=== PATIENT | male | born 1970 | race African-American/Black ===

== ENCOUNTER 2021-11-10 15:21 | Emergency (ER) | payer MEDICAID ==
[~2021-11-10] VITALS: Ht 182.9 cm; Wt 84.8 kg
[2021-11-10 15:29] VITALS: BP 160/104
--- NOTE | 2021-11-10 15:29 | NUR ---
BIBA to bed 11
--- NOTE | 2021-11-10 15:40 | NUR ---
51 y/o M BIBA from [facility] c/o abdominal pain and N/V >5 episodes for past two days. Pt states 10/10 abd pain, sharp/constant, non-radiating. Tenderness to palpation. Pt M-W-F dialysis; right upper chest dialysis port; completed 1nr10rbh of 3.5 hr tx. Patient normally on home O2 4L, presents on 6L via N/C per dialysis protocol. Patient denies diarrhea, constipation, fever, chills, chest pain, dysuria, urinary symptoms. ekg monitor tech in place BP 160/104. 4L via N/C remains in place SpO2 99%. Bed locked in lowest position, side rails x 2 for pt safety. PMH: ESRD/dialysis, DM I, HTN, anemia, CRF Meds: albuterol, clonidine, ferrous sulfate, folic acid, gabapentin, hydralazine, labetalol, lansoprazole, lantus, lasix, lisinopril, norvasc, novolog NKDA
--- NOTE | 2021-11-10 15:45 | NUR ---
Dr. Holder is evaluating pt at bedside
[2021-11-10] MEDS ORDERED: MORPHINE SULFATE 5 MG/ML VIAL IM ONE (16:00)
[2021-11-10] MEDS ORDERED: MORPHINE SULFATE 4 MG/ML SYR ONE (16:05)
--- NOTE | 2021-11-10 16:06 | NUR ---
Zofran 4mg ODT verbal order received from Dr. Holder.
--- NOTE | 2021-11-10 16:10 | NUR ---
ALEIDA chapman handed to CPT Maris at ER bedside
--- NOTE | 2021-11-10 16:11 | NUR ---
Patient d/c'd from director merit system and transported to CT via gurney.
[2021-11-10] MEDS: ONDANSETRON 4 MG ODT PO ONE (16:12)
[2021-11-10] MEDS: MORPHINE SULFATE 4 MG/ML SYR IM ONE ×2 (16:12→18:05)
--- NOTE | 2021-11-10 16:28 | NUR ---
Patient returned from CT and placed back onto curriculum and assessment director.
--- NOTE | 2021-11-10 16:56 | NUR ---
Lab at bedside
[2021-11-10 17:18] LABS: BASOPHILS % (AUTO) 0.3 % (0.0-2.0); EOSINOPHILS % (AUTO) 0.2 % (0.0-4.0); HEMATOCRIT 39.8 % (36-52); HEMOGLOBIN 12.6 g/dL (12.0-18.0); LYMPHOCYTES # (AUTO) 1.2 K/uL (2.0-11.5); LYMPHOCYTES % (AUTO) 8.1 % (20.5-51.1); MEAN CORPUSCULAR HEMOGLOBIN 28 pg (27-31); MEAN CORPUSCULAR HGB CONC 32 g/dL (33-37); MEAN CORPUSCULAR VOLUME 87.1 fL (80-94); MONOCYTES # (AUTO) 1.2 K/uL (0.8-1.0); MONOCYTES % (AUTO) 8.4 % (1.7-9.3); NEUTROPHILS # (AUTO) 12.2 K/uL (1.8-7.7); PLATELET COUNT (AUTO) 302 K/uL (140-450); RED BLOOD CELL COUNT(AUTO) 4.57 MIL/uL (4.20-6.10); WHITE BLOOD COUNT (AUTO) 14.7 K/uL (4.8-10.8)
[2021-11-10 17:38] LABS: ALBUMIN 4.1 g/dL (3.4-5.0); ANION GAP 17.6 (8-16); ASPARTATE AMINOTRANSFERASE 17 U/L (15-37); CARBON DIOXIDE 25.2 mmol/L (21-32); CHLORIDE 97 mmol/L (98-107); GFR ARICAN-AMERICAN 18 mL/min (>90); GLUCOSE 178 mg/dL (74-106); POTASSIUM 3.8 mmol/L (3.5-5.1); SODIUM SERUM 136 mmol/L (136-145); TOTAL BILIRUBIN 1.2 mg/dL (0.0-1.0); UREA NITROGEN, BLOOD 27 mg/dL (7-18)
[2021-11-10 17:51] LABS: CREATININE 4.4 mg/dL (0.6-1.3)
--- NOTE | 2021-11-10 17:53 | NUR ---
Patient states pain increasing to 8/[address] Holder made aware and verbal order received for Morphine 4mg IM.
[2021-11-10] MEDS ORDERED: CEFP200T20 PO (18:18)
[2021-11-10] MEDS ORDERED: METR-435 PO (18:18)
[2021-11-10] MEDS ORDERED: PEG4000P3 PO (18:19)
--- NOTE | 2021-11-10 18:42 | NUR ---
Dr. Holder is evaluating patient at bedside
[2021-11-10] MEDS: NACL 0.9% 500 ML IV ONE (19:13)
--- NOTE | 2021-11-10 19:15 | NUR ---
Report and transfer of care given to MARTIN Johnson
--- NOTE | 2021-11-10 21:07 | NUR ---
SPOKE WITH KAEL FROM PT[facility]S [facility] CONCERNING PT TRANSPORT.
[2021-11-10] MEDS: HYDROcodone/APAP 5/325 MG 1 TAB TAB PO ONE (22:45)
--- NOTE | 2021-11-11 07:18 | NUR ---
Pt report given to MARTIN ZENDEJAS. Transfer of care at this time.
--- NOTE | 2021-11-11 07:20 | NUR ---
RECEIVED REPORT FROM MARTIN TURNER. TRANSFER OF CARE AT THIS TIME.
--- NOTE | 2021-11-11 07:45 | NUR ---
PT RESTING IN BED, ON MAIL TELLER, NO COMPLAINTS AT THIS TIME.
--- NOTE | 2021-11-11 09:30 | NUR ---
PT C/O ABD PAIN 10/10 AND VOMITING ERMD AWARE. 4MG ZOFRAN ODT VERBAT ORDER, GIVEN.
[2021-11-11] MEDS: ONDANSETRON 4 MG ODT PO ONE ×2 (09:39→12:41)
--- NOTE | 2021-11-11 10:09 | NUR ---
GLOD MADE AWARE OF NEW VITALS, 01/24 ABD PAIN.
--- NOTE | 2021-11-11 10:13 | NUR ---
PT HAD ANOTHER EPISODE OF VOMITUS AT THIS TIME, ERMD MADE AWARE.
--- NOTE | 2021-11-11 10:32 | NUR ---
Zana hughes in ED - 11/11/21 at 1034 by [email or web address] PT MOTHER STATES SHE WANTS ANOTHER BREATHING TX, ERMD MADE AWARE. RT CALLED TO PT BEDSIDE.
[2021-11-11] MEDS ORDERED: HYDROcodone/APAP 7.5/325 MG 1 TAB ONE (10:38)
[2021-11-11] MEDS: HYDROcodone/APAP 7.5/325 MG 1 TAB PO ONE (10:39)
[2021-11-11] MEDS: amLODIPine 5 MG TAB PO ONE (10:57)
--- NOTE | 2021-11-11 11:43 | NUR ---
PT RESTING IN BED SUPINE, CALM AND COOPERATIVE, VSS, WILL CONTINUE TO MONITOR.
--- NOTE | 2021-11-11 12:30 | NUR ---
PT STATES +N/V, BP 222/113. ER MADE AWARE. ORDERS PENDING.
[2021-11-11] MEDS: atenoloL 25 MG TAB PO ONE (12:39)
[2021-11-11] MEDS: lisinopriL 20 MG TAB PO ONE (12:40)
--- NOTE | 2021-11-11 13:42 | NUR ---
PT C/O NAUSEA AND ABD PAIN 09/24. PER DR. MADRIGAL NO FURTHER MEDICATIONS TO BE ORDERED. ECONOMIC ADVISER TIME PER TEMPORARY RECEPTIONIST IS AT 1800. PT TO BE KEPT ON A BUILDING PRESSURE WASHER AND MONITORED.
--- NOTE | 2021-11-11 14:26 | NUR ---
PTS WOUND DRESSING BECAME UNDONE IN LEFT LEFT HEEL AND RIGHT FOOT, PRIOR DRESSING WAS REMOVED AND REPLACED WITH CLEAN STERILE DRESSING, +CMS AFTER PROCEDURE
--- NOTE | 2021-11-11 16:13 | NUR ---
PT SLEEPING, VISIBLE EQUAL RISE AND FALL OF CHEST, VSS, WILL CONTINUE TO MONITOR.
[2021-11-11 16:33] VITALS: BP 167/84
--- NOTE | 2021-11-11 16:33 | NUR ---
[facility] TRANSPORT TEAM AT BEDSIDE.
--- NOTE | 2021-11-11 16:34 | NUR ---
GAVE REPORT TO MARTIN SCRUGGS FOR PENDING TRANSPORT BACK TO [facility].
--- NOTE | 2021-11-11 16:35 | NUR ---
Patient discharged with v/s stable. Written and verbal after care instructions given and explained. Patient alert, oriented and verbalized understanding of instructions. [facility] VIA GURNEY. All questions addressed prior to discharge. ID band removed. Patient advised to follow up with PMD. Rx of CEFPODOXIME, FLAGYL, AND GOLYTELYSOLUTION given. Patient educated on indication of medication including possible reaction and side effects. Opportunity to ask questions provided and answered.
== END 2021-11-11 16:33 ==
LOC: MED 15:21
DX: K52.9 Noninfective gastroenteritis and colitis, unspecified (principal); Z20.822 Contact with and (suspected) exposure to COVID-19; R11.2 Nausea with vomiting, unspecified; E11.22 Type 2 diabetes mellitus with diabetic chronic kidney disease; I12.0 Hypertensive chronic kidney disease with stage 5 chronic kidney disease or end stage renal disease; N18.6 End stage renal disease; Z99.2 Dependence on renal dialysis; Z79.899 Other long term (current) drug therapy; Z98.890 Other specified postprocedural states
CPT/HCPCS: 36415; 71045; 74176; 80053; 82948; 84484; 85025; 87426; 96360; 96372; 99285; J2270; J7030; Q0092; Q0162

== ENCOUNTER 2022-08-08 16:07 | Inpatient (IN) | payer MEDICAID ==
[~2022-08-08] VITALS: Ht 177.8 cm; Wt 81.6 kg
[~2022-08-08 16:07] MED LIST: CEFP200T20 PO; METR-435 PO; PEG4000P3 PO
[2022-08-08] MEDS ORDERED: METOPROLOL 5 MG/5 ML VIAL IVP PRN (16:25)
[2022-08-08 16:28] VITALS: BP 99/69
[2022-08-08] MEDS ORDERED: AMIODARONE 150 MG in DEXTROSE 5% 100 ML IV ONE (16:40)
[2022-08-08] MEDS ORDERED: AMIODARONE 450 MG in DEXTROSE 5% 250 ML IV ONE (16:40)
[2022-08-08] MEDS ORDERED: AMIODARONE 150 MG/3 ML VIAL IV ONE (16:45)
--- NOTE | 2022-08-08 17:00 | NUR ---
PT BIB [facility] FROM DIALYSIS 3.5 HOUR INTO TREATMENT, NEW ONSET OF AFIB IN 150S. ON ARRIVAL GCS 15. DENIES PAIN OR DISCOMFORT.
[2022-08-08 17:28] LABS: BASOPHILS # (AUTO) 0.1 K/uL (0.00-0.22); BASOPHILS % (AUTO) 0.3 % (0.0-2.0); EOSINOPHILS % (AUTO) 0.1 % (0.0-4.0); HEMATOCRIT 35.1 % (36-52); HEMOGLOBIN 11.1 g/dL (12.0-18.0); LYMPHOCYTES % (AUTO) 11.6 % (20.5-51.1); MEAN CORPUSCULAR HEMOGLOBIN 27 pg (27-31); MEAN CORPUSCULAR HGB CONC 32 g/dL (33-37); MEAN CORPUSCULAR VOLUME 84.2 fL (80-94); MONOCYTES # (AUTO) 1.5 K/uL (0.8-1.0); MONOCYTES % (AUTO) 8.3 % (1.7-9.3); NEUTROPHILS % (AUTO) 79.7 % (42.2-75.2); PLATELET COUNT (AUTO) 354 K/uL (140-450); RED BLOOD CELL COUNT(AUTO) 4.17 MIL/uL (4.20-6.10); RED CELL DISTRIBUTION WIDTH 15.3 % (11.6-13.7); WHITE BLOOD COUNT (AUTO) 17.5 K/uL (4.8-10.8)
[2022-08-08 17:54] LABS: ALBUMIN 3.2 g/dL (3.4-5.0); ANION GAP 22.3 (8-16); ASPARTATE AMINOTRANSFERASE 22 U/L (15-37); CARBON DIOXIDE 25.3 mmol/L (21-32); CHLORIDE 93 mmol/L (98-107); GFR ARICAN-AMERICAN 15 mL/min (>90); GLUCOSE 112 mg/dL (74-106); MAGNESIUM 2.1 mg/dL (1.8-2.4); PHOSPHORUS 3.2 mg/dL (2.5-4.9); POTASSIUM 3.6 mmol/L (3.5-5.1); SODIUM SERUM 137 mmol/L (136-145); THYROID STIMULATING HORMONE 0.85 uIU/mL (0.34-3.74); TOTAL BILIRUBIN 0.6 mg/dL (0.0-1.0); UREA NITROGEN, BLOOD 23 mg/dL (7-18)
[2022-08-08 17:55] LABS: CREATININE 5.3 mg/dL (0.6-1.3)
[2022-08-08] MEDS ORDERED: VITA1TAB44 PO (18:02)
[2022-08-08] MEDS ORDERED: ATI.5 PO (18:02)
[2022-08-08] MEDS ORDERED: GABA300C PO (18:02)
[2022-08-08] MEDS ORDERED: SENN-72 PO (18:02)
[2022-08-08] MEDS ORDERED: CARV12.5 PO (18:02)
[2022-08-08] MEDS ORDERED: AMLO10TA PO (18:02)
[2022-08-08] MEDS ORDERED: ASCO-786 PO (18:02)
--- NOTE | 2022-08-08 18:31 | NUR ---
PT AFIB CONTROLLED INFUSING AMIODARONE TOLERATING WELL.
--- NOTE | 2022-08-08 19:25 | NUR ---
Patient resting in bed, A/Ox4, chest rise and fall symmetrical, no c/o pain or s/s of distress, on monitor.
--- NOTE | 2022-08-08 20:00 | NUR ---
PT MOTHER STACEY LEFT CONTACT INFO:
[2022-08-08] MEDS ORDERED: DILTIAZEM 125 MG in DEXTROSE 5% 100 ML IV SCH (20:15)
[2022-08-08] MEDS ORDERED: ONDANSETRON 4 MG/2 ML VIAL IM/IVP PRN (21:05)
[2022-08-08] MEDS ORDERED: DOCUSATE SODIUM 100 MG GELCAP PO PRN (21:05)
[2022-08-08] MEDS ORDERED: POTASSIUM CHLORIDE 10 MEQ TABER PO PRN (21:05)
[2022-08-08] MEDS ORDERED: guaiFENesin DM 200/20 MG-10 ML 10 ML UDC PO PRN (21:05)
[2022-08-08] MEDS ORDERED: ACETAMINOPHEN 325 MG TAB PO PRN (21:05)
[2022-08-08] MEDS ORDERED: ZOLPIDEM 5 MG TAB PO PRN (21:05)
[2022-08-08] MEDS ORDERED: PIPERACILLIN/TAZOBACTAM 3.375 GM in DEXTROSE 5% 50 ML IV SCH (21:10)
--- NOTE | 2022-08-08 21:17 | NUR ---
Patient resting in bed, A/Ox4, chest rise and fall symmetrical, no c/o pain or s/s of distress, on monitor.
--- NOTE | 2022-08-08 21:17 | NUR ---
Patient will be admitted to care of Dr. Jose Luis Valle. Admited to ICU. Will go to room 6. Belongings list completed. Report to Lakesha SALAZAR. Lakesha SALAZAR verbalized understanding of report, no further questions. Lakesha SALAZAR verbalized she "will start the cardizem drip and will start second IV."
[2022-08-08 22:02] LABS: PROTHROMBIN TIME 10.3 secs (10.8-13.4)
[2022-08-08 22:56] LABS: CHOL/HDL RATIO 2.8 (1-4.5); FREE T4 (FREE THYROXINE) 1.83 ng/dL (0.76-1.46); MAGNESIUM 2.1 mg/dL (1.8-2.4); PHOSPHORUS 3.4 mg/dL (2.5-4.9)
[2022-08-08 23:00] VITALS: BP 115/63
--- NOTE | 2022-08-08 23:16 | NUR ---
Dr Keller approved the insertion of a central line for patient , but no PICC line
[2022-08-08] MEDS ORDERED: PIPERACILLIN/TAZOBACTAM 3.375 GM VIAL IV ONE (23:50)
[2022-08-09] VITALS (20 sets, daily range): BP systolic 109–174; BP diastolic 24–101
[2022-08-09] MEDS ORDERED: AMIODARONE 450 MG in DEXTROSE 5% 250 ML IV SCH (03:05)
[2022-08-09] MEDS ORDERED: AMIODARONE 450 MG/9 ML VIAL IV ONE (03:09)
[2022-08-09] MEDS ORDERED: PIPERACILLIN/TAZOBACTAM 3.375 GM VIAL IV ONE (05:53)
[2022-08-09] MEDS: PIPERACILLIN/TAZOBACTAM 2.25 GM in DEXTROSE 5% 50 ML IV SCH ×3 (08:00→23:55)
--- NOTE | 2022-08-09 08:01 | NUR ---
PT EDUCATED ON NOT TO GET OOB PER NIGHT BASIL, STATED PT WANTS TO DANGLE FEET, I EDUCATED PT NOT TO GET OOB FOR SAFETY, PT IS AWARE OF DIALYSIS TODAY, APPEARS TO BE IN NO ACUTEDISTRESS NOTED AT THIS TIME.
--- NOTE | 2022-08-09 09:02 | NUR ---
PATIENT HAS BEEN SCREENED AND CATEGORIZED HIGH NUTRITION RISK. PATIENT WILL BE SEEN WITHIN 1-2 DAYS OF ADMISSION. 08/08/22-08/10/22 REFERRAL RECEIVED FOR WOUNDS PT WILL BE SEEN WITHIN 1-2 DAYS. REVIEWED BY SHANE LION RD
--- NOTE | 2022-08-09 09:52 | NUR ---
DR SABA SONG AT BEDSIDE, GAVE VERBAL ORDER TO DISCONTINUE AMIODARONE DRIP AND GET FURTHER ORDERS FROM LINEN ROOM WORKER. PRIMARY RN AND FARM EQUIPMENT ENGINEER MADE AWARE.
[2022-08-09] MEDS: PANTOPRAZOLE 40 MG TABEC PO SCH (09:59)
--- NOTE | 2022-08-09 10:03 | NUR ---
AMIODARONE DCD AT THIS TIME
--- NOTE | 2022-08-09 11:39 | NUR ---
DC PLANNING ASSESSMENT COMPLETE PLEASE REFER TO ASSESSMENT FOR ADDITIONAL DETAILS MARKO RIBERA STAFF REPORT DC PLAN IS FOR PT TO RETURN BACK TO FACILITY UNDER SKILLED NURSING CARE OR SKILLED CARE (IF NEEDED) WHEN MEDICALLY STABLE. Addendum: 08/09/22 at 1140 by Gilda Pollard SS Amended: Links added.
[2022-08-09] MEDS: HYDROcodone/APAP 7.5/325 MG 1 TAB PO PRN ×2 (11:47→20:04)
--- NOTE | 2022-08-09 14:50 | NUR ---
08/09/22 RD INITIAL ASSESSMENT COMPLETED PLEASE REFER TO NUTRITION ASSESSMENT UNDER CARE ACTIVITY FOR ESTIMATED NUTRITIONAL NEEDS. 1. MONITOR NPO STATUS 2. WHEN/IF MEDICALLY APPROPRIATE, RECOMMEND RENAL, CCHO 60 GM DIET WITH SABRINA BID FOR WOUND SUPPORT -SABRINA BID PROVIDES 160 KCAL AND [address] TO FOLLOW-UP 2-3 DAYS, HIGH RISK REVIEWED BY SHANE LION RD
[2022-08-09 20:52] LABS: BASOPHILS % (AUTO) 0.4 % (0.0-2.0); EOSINOPHILS # (AUTO) 0.1 K/uL (0-0.4); EOSINOPHILS % (AUTO) 0.6 % (0.0-4.0); HEMATOCRIT 30.8 % (36-52); LYMPHOCYTES # (AUTO) 1.6 K/uL (2.0-11.5); LYMPHOCYTES % (AUTO) 15.7 % (20.5-51.1); MEAN CORPUSCULAR HEMOGLOBIN 28 pg (27-31); MEAN CORPUSCULAR HGB CONC 33 g/dL (33-37); MEAN CORPUSCULAR VOLUME 84.3 fL (80-94); MONOCYTES % (AUTO) 9.9 % (1.7-9.3); NEUTROPHILS # (AUTO) 7.7 K/uL (1.8-7.7); NEUTROPHILS % (AUTO) 73.4 % (42.2-75.2); PLATELET COUNT (AUTO) 354 K/uL (140-450); RED BLOOD CELL COUNT(AUTO) 3.65 MIL/uL (4.20-6.10); RED CELL DISTRIBUTION WIDTH 15.4 % (11.6-13.7); WHITE BLOOD COUNT (AUTO) 10.5 K/uL (4.8-10.8)
[2022-08-09 21:01] LABS: ANION GAP 13.1 (8-16); CARBON DIOXIDE 30.9 mmol/L (21-32)
[2022-08-09 21:02] LABS: CREATININE 8.2 mg/dL (0.6-1.3)
[2022-08-10] VITALS (10 sets, daily range): BP systolic 102–147; BP diastolic 10–102
[2022-08-10] MEDS: HYDROcodone/APAP 7.5/325 MG 1 TAB PO PRN ×3 (01:04→21:07)
[2022-08-10 05:29] LABS: BASOPHILS # (AUTO) 0.1 K/uL (0.00-0.22); BASOPHILS % (AUTO) 0.7 % (0.0-2.0); EOSINOPHILS # (AUTO) 0.1 K/uL (0-0.4); EOSINOPHILS % (AUTO) 0.9 % (0.0-4.0); HEMATOCRIT 31.4 % (36-52); HEMOGLOBIN 10.2 g/dL (12.0-18.0); LYMPHOCYTES # (AUTO) 2.1 K/uL (2.0-11.5); LYMPHOCYTES % (AUTO) 20.4 % (20.5-51.1); MEAN CORPUSCULAR HEMOGLOBIN 27 pg (27-31); MEAN CORPUSCULAR HGB CONC 33 g/dL (33-37); MEAN CORPUSCULAR VOLUME 83.2 fL (80-94); MONOCYTES # (AUTO) 1.1 K/uL (0.8-1.0); MONOCYTES % (AUTO) 10.3 % (1.7-9.3); NEUTROPHILS # (AUTO) 7.2 K/uL (1.8-7.7); NEUTROPHILS % (AUTO) 67.7 % (42.2-75.2); PLATELET COUNT (AUTO) 367 K/uL (140-450); RED BLOOD CELL COUNT(AUTO) 3.78 MIL/uL (4.20-6.10); WHITE BLOOD COUNT (AUTO) 10.6 K/uL (4.8-10.8)
--- NOTE | 2022-08-10 05:56 | NUR ---
PT REMAINED STABLE THROUGHT THE NIGHT WITHOUT ANY ARRHYTHMIAS AND ON ROOM AIR. TURNED SELF IN BED AND RECEIVE MEDS AND WAS COMPLIANT WITH BLOOD DRAWS
[2022-08-10 06:00] LABS: ANION GAP 14.8 (8-16); CARBON DIOXIDE 31.2 mmol/L (21-32)
[2022-08-10 06:11] LABS: CREATININE 8.6 mg/dL (0.6-1.3)
--- NOTE | 2022-08-10 07:20 | NUR ---
RECEIVED BEDSIDE REPORT FROM FISH AND WILDLIFE SCIENTIFIC AID LINEN KEEPER, YENIFER, FOR CONTINUITY OF CARE. A/OX4, PERRLA. ROOM AIR. NORMAL SINUS RHYTHM. RESPIRATIONS EVEN AND UNLABORED. STANDARD PRECAUTION. BED LOCKED AND IN LOWEST POSITION.
[2022-08-10] MEDS: PIPERACILLIN/TAZOBACTAM 2.25 GM in DEXTROSE 5% 50 ML IV SCH ×2 (08:13→16:00)
[2022-08-10] MEDS: PANTOPRAZOLE 40 MG TABEC PO SCH (08:13)
--- NOTE | 2022-08-10 09:20 | NUR ---
PT TRANSFERRED TO TELEMETRY WITH BELONGINGS.
--- NOTE | 2022-08-10 10:42 | NUR ---
WOUND CARE NOTE: PT. ADMITTED FROM ICU AAX4. PT WITH ATRIAL FIBRILLATION, SEPSIS, INFECTION AND END-STAGE RENAL DISEASE, ON HEMODIALYSIS. PER PT. CHRONIC OSTEOMYELITIS TO RIGHT PLANTAR FOOT AND NOW LEFT HEEL ULCER STARTING. POC DISCUSSED WITH DR. WALSH, PENDING DR. URIBE CONSULTATION, WOUND CX ORDERED. POC DISCUSSED WITH PT. PT. VERBALIZES UNDERSTANDING. -RIGHT 5TH TOE PLANTAR 2X2CM DRY STABLE SCAB, NO ODOR, MAYCO WOUND SKIN DRY SCALY SKIN, PAIN 0/10 -LEFT HEEL ULCER 6X7X0.3CM SMALL AMOUNT PURULENT DRAINAGE, SKIN DENUDED WITH WOUND EDGE DETACHED, MAYCO-WOUND SKIN DENUDED, MILD ODOR, PAIN 0/10 RECOMMENDATIONS: -CLEANSE RIGHT 5TH TOE PLANTAR WOUND AND LEFT HEEL WITH NS PAT DRY, APPLY OIL EMULSION DRESSING WITH BETADINE SOLUTION AND COVER WITH FOAM DRESSING, WRAP WITH KERLIX ROLLS SECURED WITH TAPE QD AND PRN IF SOILING -APPLY HEEL RAISER TO BILATERAL HEELS WITH OFFLOADING -POSITIONING: TURN AND REPOSITION PATIENT Q 2H OR SOONER USE PILLOWS TO KEEP BONY PROMINENCES FROM DIRECT CONTACT WITH SURFACES USE REPOSITIONING WEDGES TO PROVIDE 30-DEGREE ANGLE FOR SIDE LYING POSITIONS OFFLOADING OR FOAM DRESSING TO ALL TUBING TO PREVENT MEDICAL DEVICES RELATED PRESSURE INJURY -MANAGE FRICTION/SHEAR/MOBILITY KEEP HOB AT THE LOWEST LEVEL OF ELEVATION NO MORE THAN 30 DEGREE UNLESS OTHERWISE CONTRAINDICATED USE LIFT SHEET OR TRANSFER DEVICE TO MOVE PATIENT AND PREVENT LATERAL SHEER. PROTECT HEELS, ELBOWS BONY PROMINENCES WITH SKIN BERRIES OR FOAM DRESSING IF EXPOSED TO FRICTION OFFLOAD BILATERAL HEELS BY PLACING PILLOWS UNDER CALVES AT ALL TIMES, UNLESS OTHERWISE CONTRAINDICATED -NUTRITION: PLEASE FOLLOW RD RECOMMENDATIONS AND OFFER NUTRITION SUPPLEMENTS IF ORDERED. PLEASE CONTACT WOUND CARE NURSE FOR ANY QUESTION AND CHANGE OF WOUND CONDITION.
[2022-08-10] MEDS ORDERED: NON ADHERENT DRESSING TP PRN (11:50)
[2022-08-10] MEDS: NON ADHERENT DRESSING TP SCH (13:00)
[2022-08-10] MEDS ORDERED: GABAPENTIN 300 MG CAP PO SCH (13:00)
[2022-08-10] MEDS ORDERED: MORPHINE SULFATE 2 MG/ML SYR IVP PRN (17:05)
[2022-08-10] MEDS: MORPHINE SULFATE 2 MG/ML SYR IVP PRN (17:21)
--- NOTE | 2022-08-10 19:25 | NUR ---
MARIOLA. REPORT FROM GLYNN SALAZAR FOR CONTINUITY OF CARE. PATIENT RESTING IN BED, AWAKE A/OX4. RESPIRATION EVEN AND UNLABORED. WITH RIGHT CHEST BIENVENIDO CATH COVERED WITH DRESSING, DRY AND INTACT. MIDLINE DOUBLE LUMEN AT THE LEFT UPPER ARM WITH DRESSING DRY AND INTACT. SALINE LOCK AT THE LEFT HAND G2O, PATENT AND INTACT. ABLE TO VERBALIZED NEEDS. WITH LEFT HEEL ULCER AND RIGHT FIFTH TOE SCAB. DENIES PAIN 0/10.
--- NOTE | 2022-08-10 20:00 | NUR ---
Patient's Plan of Care was discussed and reviewed with LITHOGRAPHIC PROOFER APPRENTICE: MANNY TRAORE
[2022-08-10] MEDS: carvediloL 12.5 MG TAB PO SCH (21:00)
--- NOTE | 2022-08-10 21:07 | NUR ---
REQUESTING FOR MORPHINE FOR PAIN BUT NOT YET DUE AND ALSO B/P IS LOW. MEDICATED WITH NORCO INSTEAD AND GIVEN ADDITIONAL WARM BLANKET FOR COMFORT, REPOSITIONED SELF IN BED.
--- NOTE | 2022-08-10 23:00 | NUR ---
VERBALIZED HAD BM TWO DAYS AGO. OFFERED PRUNE JUICE AND STOOL SOFTENER BUT REFUSED.
[2022-08-11] VITALS: BP 127/77
[2022-08-11] MEDS: PIPERACILLIN/TAZOBACTAM 2.25 GM in DEXTROSE 5% 50 ML IV SCH ×4 (00:25→23:58)
--- NOTE | 2022-08-11 01:00 | NUR ---
SLEEPING COMFORTABLY IN BED. RESPIRATION EVEN AND UNLABORED. CALL LIGHT IN REACH.
--- NOTE | 2022-08-11 02:00 | NUR ---
STILL SLEEPING ON BED, COVERED WITH WARM BLANKET. NO DISTRESS NOTED.
[2022-08-11 04:00] VITALS: BP 163/99
--- NOTE | 2022-08-11 04:00 | NUR ---
VS STABLE. COMPLAINT OF PAIN 7/10 AT HIS BILATERAL LOWER EXTREMITIES AND CHEST. WILL MEDICATE PER MD ORDER.
[2022-08-11] MEDS: MORPHINE SULFATE 2 MG/ML SYR IVP PRN (04:08)
--- NOTE | 2022-08-11 05:10 | NUR ---
SITTING COVERED WITH BLANKET IN BED. VERBALIZED FEELING BETTER.
--- NOTE | 2022-08-11 06:00 | NUR ---
REFUSED KILN LOADER TO DRAW BLOOD FOR THE AM LABS.
[2022-08-11 08:00] VITALS: BP 154/91
--- NOTE | 2022-08-11 08:00 | NUR ---
GOT REPORT FROM THE NIGHT NURSE, PT COMPLAINING OF PAIN.[id number]
[2022-08-11] MEDS: carvediloL 12.5 MG TAB PO SCH ×2 (08:22→21:00)
[2022-08-11] MEDS: HYDROcodone/APAP 7.5/325 MG 1 TAB PO PRN (08:22)
[2022-08-11] MEDS: PANTOPRAZOLE 40 MG TABEC PO SCH (08:23)
--- NOTE | 2022-08-11 10:36 | NUR ---
DC PLANNIN YRS OLD MALE PATIENT WAS ADMITTED FROM [facility]) WITH A DX OF A-FIBE WITH RVR. PATIENT HAS A HX OF HT, ESRD ON HEMODIALYSIS, AND CHRONIC OSTEOMYELITIS. CXR SHOWED MILD LOW LUNG VOLUME WITH LEFT BASILAR SUBSEGMENTAL ATELECTASIS. RAPID COVID TEST NEGATIVE. RT FOOT X-RAY SHOWED SUSPICIOUS FOR OSTEOMYELITIS AND LT FOOT X-RAY SHOWED NO SIGN OF OSTEOMYELITIS. ADMINISTERED IVF IV ABX ZOSYN AND CONTINUED HOME MEDS. CONSULTED WITH PODIATRY ,ID AND NEPHRO. DC PLAN TO RETURN TO [facility] WHEN STABLE. CM TO FOLLOW Addendum: 08/12/22 at 1456 by Ingris Murrell RN DC PLANNING: AWAITING FOR PODIATRY TO SEE PATIENT CONTINUE IV ABX WITH ZOSYN. DC PLAN TO RETURN TO [facility]. CM TO FOLLOW Addendum: 08/15/22 at 1615 by Ingris Murrell RN DC PLANNING: SEEN BY NEPHRO AND ID ORDERED BONE SCAN TO R/O OSTEO. CONTINUED IV ABX VANCO AND DIALYSIS DC BARNARD AWAITING FOR BONE SCAN. CM TO FOLLOW Addendum: 08/16/22 at 1215 by PRASAD SMITH CM RECEIVED ORDER FOR PATIENT TO GO BACK TO SNF AFTER DIALYSIS. FAXED ALL PAPERWORK TO [facility]. SPOKE WITH MAGALIS PATIENT WILL BE GOING TO ROOM [address]ELER. TRANSPORTATION SETUP WITH [facility] AT CALL THE CAR WITH A 1900 OCCUPATIONAL WORK EXPERIENCE TEACHER TIME.RESERVATION NUMBER [id number]. THEY WERE INFORMED TO CALL NURSING STATION WITH ETA AND VEHICLE INFORMATION. CHARGE NURSE NISA AND MOTHER STACEY AWARE OF THE ABOVE INFORMATION. Addendum: 08/16/22 at 1514 by PRASAD SMITH CM RECEIVED CALL FROM CALL THE CAR CONFIRMING 1900 OCCUPATIONAL WORK EXPERIENCE TEACHER TIME.
[2022-08-11 12:00] VITALS: BP 125/61
[2022-08-11] MEDS: NON ADHERENT DRESSING TP SCH (13:00)
[2022-08-11] MEDS: HYDROcodone/APAP 10/325 MG 1 TAB TAB PO PRN ×2 (13:06→18:55)
--- NOTE | 2022-08-11 13:59 | NUR ---
08/11/22 RD FOLLOW UP COMPLETED PLEASE REFER TO NUTRITION ASSESSMENT UNDER CARE ACTIVITY FOR ESTIMATED NUTRITIONAL NEEDS. 1. RECOMMEND ADDING CCHO 60 GM TO RENAL, CARDIAC DIET TOLERATED 2. RECOMMEND NEPRO 1/DAY FOR WOUND SUPPORT -PROVIDES 420 KCAL AND 19GM PROTEIN DAILY 3. RD TO FOLLOW-UP 3-5 DAYS, MODERATE RISK REVIEWED BY SHANE LION RD
[2022-08-11 16:00] VITALS: BP 106/59
--- NOTE | 2022-08-11 19:34 | NUR ---
GAVE REPORT TO THE FROZEN PIE MAKER.[id number]
--- NOTE | 2022-08-11 19:35 | NUR ---
RECEIVED REPORT FROM DAY SHIFT NURSE GLYNN FOR CONTINUITY OF CARE. PT AWAKE SITTING IN BED. ON RUBBER BOOTS AND SHOES REPAIRER. RESPIRATIONS EVEN AND UNLABORED ON RA. NO DISTRESS NOTED. DENIES PAIN. SHADIA MIDLINE DOUBLE LUMEN INTACT AND PATENT. HAD HD TODAY WITH 2L OUT, HD SITE ON LEFT CHEST TUNNELED CATH INTACT. NOTED LEFT HEEL COVERED WITH BANDAGE. POC DISCUSSED. REPORT GIVEN TO MARTIN GARG. CALL LIGHT WITHIN REACH. SAFETY PRECAUTIONS IN PLACE.
--- NOTE | 2022-08-11 19:36 | NUR ---
Patient's Plan of Care was discussed and reviewed with YEISON: MATT
[2022-08-11 20:00] VITALS: BP 98/63
--- NOTE | 2022-08-11 21:33 | NUR ---
ADMINISTERED DUE MED. NON-ADMIT BP MED DUE TO LOW BP. PT REFUSED PERIPHERAL IV REMOVED DESPITE HAVING A MIDLINE.
[2022-08-12] VITALS (7 sets, daily range): BP systolic 91–135; BP diastolic 48–82
[2022-08-12] MEDS: HYDROcodone/APAP 10/325 MG 1 TAB TAB PO PRN ×4 (01:40→21:35)
--- NOTE | 2022-08-12 07:15 | NUR ---
GAVE BEDSIDE REPORT TO MARTIN WHITTINGTON FOR CONTINUITY OF CARE. PT IS STABLE.
[2022-08-12] MEDS: PIPERACILLIN/TAZOBACTAM 2.25 GM in DEXTROSE 5% 50 ML IV SCH ×3 (08:00→23:38)
[2022-08-12] MEDS: carvediloL 12.5 MG TAB PO SCH ×2 (09:17→21:22)
[2022-08-12] MEDS: PANTOPRAZOLE 40 MG TABEC PO SCH (09:17)
--- NOTE | 2022-08-12 14:45 | NUR ---
Pt c/o "the bed won't be there when they discharge me! I need to leave today." CM notified and assured RN pt will still have bed available when discharged. Pt informed of this and then he decided that he still needs to leave, "at 5 pm, AMA or Elope." DELGADO referred RN to Attending. Dr. Valle's exchange notified and awaiting CB.
[2022-08-12] MEDS: NON ADHERENT DRESSING TP SCH (15:24)
--- NOTE | 2022-08-12 16:00 | NUR ---
PT GIVEN AMA PAPERS TO SIGN. PT REFUSED. PT EXPLAINED THAT HIS OPTIONS WERE NOT EXPLAINED TO HIM UNTIL TODAY. SO NOW, PT AGREEABLE TO STAY IN HOSPITAL UNTIL TREATMENT IS COMPLETE.
[2022-08-13 04:00] VITALS: BP 120/75
--- NOTE | 2022-08-13 05:38 | NUR ---
CALLED HERNÁNDEZ REGARDING PT'S HEMODIALYSIS.
[2022-08-13 08:00] VITALS: BP 131/78
--- NOTE | 2022-08-13 08:00 | NUR ---
NURSE REPORT REPORT OBTAINED FROM KIMBERLY BURNS AT 0715 AND THIS NURSE ASSUMED CARE OF PATIENT. VSS. AFEB, TELE MONITOR WITH SB 52. NO C/O PAIN OR DISCOMFORT. IV 1/2NS AND 20 MEQ KCL INFUSING AT 70 ML/HR INTO SHALINI PICC. ANAHY MENARD RN
[2022-08-13] MEDS: PIPERACILLIN/TAZOBACTAM 2.25 GM in DEXTROSE 5% 50 ML IV SCH ×2 (08:58→15:26)
[2022-08-13] MEDS: carvediloL 12.5 MG TAB PO SCH ×2 (09:00→20:15)
[2022-08-13] MEDS: PANTOPRAZOLE 40 MG TABEC PO SCH (09:01)
[2022-08-13] MEDS: HYDROcodone/APAP 10/325 MG 1 TAB TAB PO PRN ×2 (09:09→21:01)
--- NOTE | 2022-08-13 10:02 | NUR ---
NURSE NOTES PHARMACY CALLED AND STATED THE ZOSYN WILL AT 0800 08/[address] MOSQUERA WAS NOTIFIED AND HE RENEWED ZOSYN. ANAHY MENARD RN
[2022-08-13 10:38] LABS: BASOPHILS # (AUTO) 0.1 K/uL (0.00-0.22); BASOPHILS % (AUTO) 0.7 % (0.0-2.0); EOSINOPHILS # (AUTO) 0.3 K/uL (0-0.4); EOSINOPHILS % (AUTO) 2.6 % (0.0-4.0); HEMATOCRIT 30.3 % (36-52); HEMOGLOBIN 10.1 g/dL (12.0-18.0); LYMPHOCYTES # (AUTO) 2.8 K/uL (2.0-11.5); LYMPHOCYTES % (AUTO) 26.5 % (20.5-51.1); MEAN CORPUSCULAR HEMOGLOBIN 28 pg (27-31); MEAN CORPUSCULAR HGB CONC 33 g/dL (33-37); MEAN CORPUSCULAR VOLUME 83.8 fL (80-94); MONOCYTES # (AUTO) 0.7 K/uL (0.8-1.0); MONOCYTES % (AUTO) 6.6 % (1.7-9.3); NEUTROPHILS # (AUTO) 6.8 K/uL (1.8-7.7); NEUTROPHILS % (AUTO) 63.6 % (42.2-75.2); PLATELET COUNT (AUTO) 367 K/uL (140-450); RED BLOOD CELL COUNT(AUTO) 3.61 MIL/uL (4.20-6.10); RED CELL DISTRIBUTION WIDTH 15.3 % (11.6-13.7); WHITE BLOOD COUNT (AUTO) 10.7 K/uL (4.8-10.8)
[2022-08-13 11:04] LABS: ANION GAP 15.3 (8-16); CARBON DIOXIDE 27.7 mmol/L (21-32)
[2022-08-13 11:10] LABS: CREATININE 9.9 mg/dL (0.6-1.3)
[2022-08-13 12:00] VITALS: BP 122/58
--- NOTE | 2022-08-13 12:00 | NUR ---
NURSE NOTES VSS. AFEB. TELE WITH AFIB 87. NO C/O PAIN OR DISCOMFORT.
[2022-08-13] MEDS: NON ADHERENT DRESSING TP SCH (13:00)
[2022-08-13 16:00] VITALS: BP 100/67
--- NOTE | 2022-08-13 16:00 | NUR ---
NURSE NOTES VSS. AFEB. TELE WITH AFIB 104. NO SXS OF PAIN OR DISTRESS. IV CHANGED TO D5W. DR NORTON WANT TO BE CALLED WITH 1900 BMP RESULTS. ANAHY MENARD RN
[2022-08-13] MEDS ORDERED: VANCOMYCIN PER PHARMACY MC PRN (18:30)
[2022-08-13] MEDS ORDERED: VANCOMYCIN 1GM/DEXT 5% PREMIX 200 ML IV ONE (18:45)
--- NOTE | 2022-08-13 19:30 | NUR ---
NURSE REPORT REPORT GIVEN TO NIGHT NURSE EDEN TO ASSUME CARE OF PATIENT. ALL QUESTIONS ANSWERED. ANAHY MENARD RN
[2022-08-13 20:00] VITALS: BP 98/67
[2022-08-13] MEDS: APIXABAN 2.5 MG TAB PO SCH (20:15)
[2022-08-13] MEDS ORDERED: VANCOMYCIN 1,000 MG VIAL ONE (21:20)
[2022-08-14] VITALS: BP 118/82
[2022-08-14 04:00] VITALS: BP 110/76
[2022-08-14 07:36] VITALS: BP 117/72
--- NOTE | 2022-08-14 08:33 | NUR ---
Patient requesting against medical advice paperwork if he cannot talk to social contact worker because he has care in place and will need to get his things from storage with the help of his brother or he risks losing his items in storage because he says he has no income. He also claims he has been discharged twice and then it was decided he stay for further treatment. Says he already has care for his foot infection in place and the only reason he did not go to [facility] was because he had afib/rvr episode while at [facility] and was told he needed to come to [facility] because there was no beds in [place].
[2022-08-14] MEDS: PANTOPRAZOLE 40 MG TABEC PO SCH (09:36)
[2022-08-14] MEDS: carvediloL 12.5 MG TAB PO SCH ×2 (09:37→21:25)
[2022-08-14] MEDS: APIXABAN 2.5 MG TAB PO SCH ×2 (09:38→21:27)
[2022-08-14] MEDS: HYDROcodone/APAP 10/325 MG 1 TAB TAB PO PRN ×2 (10:10→21:28)
[2022-08-14 12:00] VITALS: BP 121/64
[2022-08-14] MEDS: NON ADHERENT DRESSING TP SCH (12:59)
[2022-08-14 16:00] VITALS: BP 110/65
[2022-08-14 20:00] VITALS: BP 99/58
[2022-08-15] VITALS: BP 108/60
[2022-08-15 04:00] VITALS: BP 102/63
--- NOTE | 2022-08-15 07:21 | NUR ---
Patient refusing morning laboratory draw.
[2022-08-15 08:00] VITALS: BP 118/68
[2022-08-15] MEDS: PANTOPRAZOLE 40 MG TABEC PO SCH (09:09)
[2022-08-15] MEDS: carvediloL 12.5 MG TAB PO SCH ×2 (09:11→21:02)
[2022-08-15] MEDS: APIXABAN 2.5 MG TAB PO SCH ×2 (09:14→21:01)
--- NOTE | 2022-08-15 11:08 | NUR ---
Patient agrees with laboratory draw if from his line. Will contact lab for collection/ delivery.
[2022-08-15 12:00] VITALS: BP 117/60
--- NOTE | 2022-08-15 12:08 | NUR ---
Peripherally inserted central catheter dressing change and left lower extremity dressing change.
--- NOTE | 2022-08-15 12:43 | NUR ---
Unsuccessful lab draw via peripherally inserted central line.
[2022-08-15] MEDS: NON ADHERENT DRESSING TP SCH (12:56)
--- NOTE | 2022-08-15 14:26 | NUR ---
08/15/22 RD FOLLOW UP COMPLETED PLEASE REFER TO NUTRITION ASSESSMENT UNDER CARE ACTIVITY FOR ESTIMATED NUTRITIONAL NEEDS. 1. CONTINUE [id number], RENAL, CARDIAC DIET WITH NEPRO 1/DAY TOLERATED - NEPRO PROVIDES 420 KCAL AND 19GM PROTEIN DAILY 2. MONITOR PO INTAKE AND NUTRITION RELATED LAB VALUES 3. RD TO FOLLOW-UP 7 DAYS, LOW RISK REVIEWED BY SHANE LION RD
--- NOTE | 2022-08-15 14:34 | NUR ---
Patient says he now will accept lab draw because he does not want to keep missing treatment/hemodialysis/etc. Laboratory team notification about lab blood draw request.
[2022-08-15 15:29] LABS: BASOPHILS # (AUTO) 0.1 K/uL (0.00-0.22); BASOPHILS % (AUTO) 0.6 % (0.0-2.0); EOSINOPHILS # (AUTO) 0.3 K/uL (0-0.4); HEMATOCRIT 31.2 % (36-52); HEMOGLOBIN 9.9 g/dL (12.0-18.0); LYMPHOCYTES # (AUTO) 4.4 K/uL (2.0-11.5); LYMPHOCYTES % (AUTO) 31.8 % (20.5-51.1); MEAN CORPUSCULAR HEMOGLOBIN 27 pg (27-31); MEAN CORPUSCULAR HGB CONC 32 g/dL (33-37); MEAN CORPUSCULAR VOLUME 84.4 fL (80-94); MONOCYTES % (AUTO) 7.5 % (1.7-9.3); NEUTROPHILS # (AUTO) 8.1 K/uL (1.8-7.7); NEUTROPHILS % (AUTO) 58.1 % (42.2-75.2); PLATELET COUNT (AUTO) 386 K/uL (140-450); RED CELL DISTRIBUTION WIDTH 15.8 % (11.6-13.7)
[2022-08-15 15:46] LABS: ANION GAP 19.2 (8-16); CARBON DIOXIDE 24.3 mmol/L (21-32); POTASSIUM 4.5 mmol/L (3.5-5.1)
[2022-08-15 16:00] VITALS: BP 127/65
[2022-08-15 16:45] LABS: CREATININE 9.9 mg/dL (0.6-1.3)
[2022-08-15] MEDS ORDERED: VANCOMYCIN 1,000 MG in DEXTROSE 5% 250 ML IV SCH (18:00)
--- NOTE | 2022-08-15 19:18 | NUR ---
Patient return from nuclear bone scan. Endorsement with night team nurseMelida.
[2022-08-15 20:00] VITALS: BP_SYST 100; BP_SYST 108; BP_DIAS 65; BP_DIAS 75
[2022-08-15] MEDS: HYDROcodone/APAP 10/325 MG 1 TAB TAB PO PRN (21:02)
[2022-08-16] VITALS: BP 100/65
[2022-08-16 04:00] VITALS: BP 119/68
--- NOTE | 2022-08-16 07:30 | NUR ---
RECEIVED REPORT FROM SPIKEMAKING SUPERVISOR NURSE. PT CURRENTLY RESTING WITH CHEST RISING AND FALLING. NO ACUTE S/S OF DISTRESS, ALL SAFETY MEASURES IN PLACE. CALL LIGHT WITHIN REACH.
[2022-08-16 08:00] VITALS: BP 125/74
--- NOTE | 2022-08-16 08:14 | NUR ---
PTS MOTHER, STACEY CALLED, ALL QUESTIONS ANSWERED. NUMBER PROVIDED TO MD PER REQUEST
[2022-08-16] MEDS: carvediloL 12.5 MG TAB PO SCH (09:00)
--- NOTE | 2022-08-16 09:04 | NUR ---
MICHELLE MEDICATION ADMINISTERED PER MD ORDER. CALL LIGHT WITHIN REACH. ALL SAFETY MEASURES IN PLACE.
[2022-08-16] MEDS: APIXABAN 2.5 MG TAB PO SCH (09:05)
[2022-08-16] MEDS: HYDROcodone/APAP 10/325 MG 1 TAB TAB PO PRN (09:06)
[2022-08-16] MEDS: PANTOPRAZOLE 40 MG TABEC PO SCH (09:06)
[2022-08-16 12:00] VITALS: BP 120/92
--- NOTE | 2022-08-16 12:01 | NUR ---
PT HAS BEEN CLEANED, SMEAR BOWEL MOVEMENT NOTED. NEW DIAPER PLACED. ALL SAFETY MEASURES IN PLACE, CALL LIGHT WITHIN REACH.
--- NOTE | 2022-08-16 12:30 | NUR ---
DIALYSIS NURSE AT BEDSIDE.
[2022-08-16] MEDS: NON ADHERENT DRESSING TP SCH (13:00)
[2022-08-16] MEDS ORDERED: VANC500F IV (13:52)
[2022-08-16] MEDS ORDERED: CEFP200T20 PO (13:52)
[2022-08-16] MEDS ORDERED: vanco (13:52)
[2022-08-16] MEDS ORDERED: METR-435 PO (13:53)
--- NOTE | 2022-08-16 15:30 | NUR ---
DIALYSIS NURSE COMPLETED, PT STABLE. 2L REMOVED. ALL SAFETY MEASURES IN PLACE, CALL LIGHT WITHIN REACH.
[2022-08-16 16:00] VITALS: BP 123/53
[2022-08-16 16:49] VITALS: BP 120/92
--- NOTE | 2022-08-16 17:30 | NUR ---
WOUND CARE COMPLETED PER INSTRUCTIONS OF WOUND NURSE. PT EDUCATION PROVIDED. DISCHARGE PHOTOS TAKEN AND PLACED IN CHART. EDUCATION REGARDING IV ANTIBIOTICS PROVIDED. PT STATES HE IS UNABLE TO TAKE VANCO BECAUSE HE WAS TOLD HE HAS VRE, PHARMACY AND DR VOGEL CALLED. DR WOOD STATED HE IS AWARE, IT IS BECAUSE PTS CULTURE RETURNED BACK WITH MRSA, DIFFERENT INFECTION FROM [facility]. PT MADE AWARE. IV ANTIBIOTICS STARTED. DISCHARGE INSTRUCTIONS PROVIDED, ALL QUESTIONS ANSWERED. ALL SAFETY MEASURES IN PLACE, CALL LIGHT WITHIN REACH.
[2022-08-16] MEDS ORDERED: VANCOMYCIN 1,000 MG in DEXTROSE 5% 250 ML IV SCH (18:00)
--- NOTE | 2022-08-16 18:20 | NUR ---
CONTACTED [facility] AND SPOKE WITH MARIMAR AND GAVE SBAR REPORT TO HER AT [phone]. SHE HAD NO ADDITIONAL QUESTIONS OR CONCERNS FOR ME.
--- NOTE | 2022-08-16 18:58 | NUR ---
SPOKE WITH MARIMAR AGAIN AT [phone] AND INFORMED HER THAT PT IS BEING TRANSPORTED BACK WITH THE REMAINING VANCOMYCIN 184.8ML NEEDING TO BE COMPLETED. MARIMAR CONFIRMED SHE WILL COMPLETE ONCE PT ARRIVES.
== END 2022-08-16 18:55 | DRG 720 ==
LOC: MED 16:07 → MIC 20:16 → MTU 08-10 09:20
PROVIDERS: ADMIT Family Medicine; ATTEND Family Medicine
PROC: 5A1D70Z Performance of Urinary Filtration, Intermittent, Less than 6 Hours Per Day (ICD-10-PCS; principal; 2022-08-10)
PROC: 5A1D70Z Performance of Urinary Filtration, Intermittent, Less than 6 Hours Per Day (ICD-10-PCS; 2022-08-12)
PROC: 5A1D70Z Performance of Urinary Filtration, Intermittent, Less than 6 Hours Per Day (ICD-10-PCS; 2022-08-15)
DX: A41.9 Sepsis, unspecified organism (principal); N17.0 Acute kidney failure with tubular necrosis; I13.2 Hypertensive heart and chronic kidney disease with heart failure and with stage 5 chronic kidney disease, or end stage renal disease; E44.1 Mild protein-calorie malnutrition; L97.428 Non-pressure chronic ulcer of left heel and midfoot with other specified severity; D63.8 Anemia in other chronic diseases classified elsewhere; E83.39 Other disorders of phosphorus metabolism; Z20.822 Contact with and (suspected) exposure to COVID-19; L97.518 Non-pressure chronic ulcer of other part of right foot with other specified severity; N18.6 End stage renal disease; Z68.25 Body mass index [BMI] 25.0-25.9, adult; M86.8X7 Other osteomyelitis, ankle and foot; E11.22 Type 2 diabetes mellitus with diabetic chronic kidney disease; E78.5 Hyperlipidemia, unspecified; I50.9 Heart failure, unspecified; I48.0 Paroxysmal atrial fibrillation; E11.621 Type 2 diabetes mellitus with foot ulcer
CPT/HCPCS: 36415; 71045; 73630; 78315; 80048; 80053; 80202; 82150; 83036; 83690; 83735; 83880; 84100; 84436; 84439; 84443; 84479; 84484; 85025; 85610; 85730; 87070; 87081; 87186; 93005; 99291; J0282; J1644; J2270; J2543; J3370; J3490; J7060; Q0092